=== PATIENT | male | born 1950 | race Caucasian/White ===

== ENCOUNTER 2016-04-19 16:30 | Inpatient (IN) | payer MEDICARE, OTHER ==
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
[~2016-04-19 16:30] MED LIST: ADVAIR250 INH; ALBUTEROL5 INH; ASAB PO; ATV1 PO; BP MEDICATION PO; COREG3 PO; COREG6 PO; COZ25 PO; DEMA20 PO; DULERA 200 MCG/13 GM INH; FERROUS SULF325 M1 PO; GLUCPH PO; HABIT14 TOP; KLONO5 PO; L40 PO; LEVEMIR SC; LIPITOR40 PO; NITROSTAT0.4 MG PO; NOVOLOG SC; PCET PO; PLAVIX PO; PRIN2.5 PO; PROVENTSOL INH; SENTAB PO; SPIRIVA INH; SPIRO25 PO; VITC500 PO; XARELTO20 MG PO; ZESTRIL40 MG PO
[2016-04-19 17:04] LABS: BE (BASE EXCESS) 0.6 MEQ/L (0 +/- 2.5); CARBOXYHEMOGLOBIN 1.7 % (0-3); HCO3 (ACTUAL BICARBONATE) 23.6 MEQ/L (23-27); HEMOBLOGIN CONTENT 14.1 G/DL (14-18); INSTRUMENT SERIAL # 8087; METHEMOGLOBIN 0.1 % (0-3); PCO2 (CO2 TENSION) 33 MMHG (35-45); PO2 (O2 TENSION) 83 MMHG (79-93); SAMPLE Arterial; pH 7.47 (7.37-7.43)
[2016-04-19 17:05] LABS: ALLENS TEST Pos
[2016-04-19 17:18] LABS: BASOPHILS 0.5 %; BASOPHILS ABSOLUTE 0.03 10/3/uL (0.0-0.16); EOSINOPHILS 1.6 %; EOSINOPHILS ABSOLUTE 0.09 10/3/uL (0.0-0.53); ER CBC TAT 0 Hrs 08 Mins; HEMOGLOBIN 13.1 g/dL (13.6-17.8); MEAN CORPUS HGB CONC 31.9 g/dL (32.0-36.0); MEAN CORPUSCULAR HEMOGLOB 27.1 pg (26.0-34.0); MEAN CORPUSCULAR VOLUME 85.1 fL (80-100); MEAN PLATELET VOLUME 11.2 fL (9.2-13.0); MONOCYTES 9.5 %; MONOCYTES ABSOLUTE 0.52 10/3/uL (0.21-1.20); NEUTROPHILS 68.4 %; NEUTROPHILS ABSOLUTE 3.75 10/3/uL (2.02-8.40); PLATELET COUNT 137 10/3/uL (150-400); RBC DISTRIBUTION WIDTH 14.3 % (12.0-16.0); RED CELL COUNT 4.83 10/6/uL (4.7-6.1); WHITE BLOOD CELLS 5.5 10/3/uL (4.5-10.5)
[2016-04-19 17:20] LABS: HEMATOCRIT 41.1 % (40.0-51.0); MANUAL DIFF NO %
[2016-04-19 17:24] LABS: INTERNATIONAL NORMAL RATI 1.3 UNITS (-); PARTIAL THROMBO TIME 26.5 SEC (22.5-37.2)
[2016-04-19 17:26] LABS: PROTIME (NOT ORD) 15.8 SEC (12.0-14.5)
[2016-04-19 17:31] LABS: ALBUMIN 3.5 G/DL (3.5-5.0); ALKALINE PHOSPHATASE 89 U/L (45-117); CALCIUM, SERUM 8.6 MG/DL (8.5-10.4); CHEST PAIN PROFILE TAT 0 Hrs 21 Mins; CHLORIDE, SERUM 108 MMOL/L (96-112); CO2 (CARBON DIOXIDE) 27 MMOL/L (24-34); CREATININE 0.79 MG/DL (0.70-1.30); GFR AFRICAN AMERICAN 109 ML/MIN (>=60); GFR NON AFRICAN AMERICAN 94 ML/MIN (>=60); SGOT(AST) 22 U/L (5-40); SGPT(ALT) 24 U/L (5-65); SODIUM, SERUM 143 MMOL/L (135-148); TOTAL PROTEIN 6.5 G/DL (6.0-8.5); TROPONIN I 0.03 NG/ML (<0.05)
[2016-04-19 17:32] LABS: ACETAMINOPHEN LEVEL (TYLENOL) < 2.0 MCG/ML (10.0-20.0); ALCOHOL < 10 MG/DL (0); BUN (BLOOD UREA NITROGEN) 14 MG/DL (6-23); DIRECT BILIRUBIN 0.2 MG/DL (0.0-0.4); GLUCOSE, SERUM 189 MG/DL (60-99); INDIRECT BILIRUBIN(NOT ORDER) 0.4 MG/DL (0.1-0.9); SALICYLATE < 1.7 MG/DL (-); TOTAL BILIRUBIN 0.6 MG/DL (0-1.2)
[2016-04-19 19:06] LABS: ASCORBIC ACID (UR NOT ORDER) NEG (NEG); BILIRUBIN, URINE NEGATIVE (NEG); ER URINALYSIS TAT 0 Hrs 15 Mins; KETONE, URINE TRACE MG/DL (NEG); LEUKOCYTE ESTERASE(NOT OR NEG (NEG); NITRITE (URINE) NEG (NEG); WBC (NOT ORDERED) (RFLEX) 2 (0-5)
[2016-04-19 19:29] LABS: AMPHETAMINES (NOT ORD) POS (NEG); BARBITURATES (NOT ORDERED NEG (NEG); BENZODIAZEPINES (NOT ORD) NEG (NEG); CANNABINOIDS (THC) NEG (NEG); COCAINE (NOT ORDERED) NEG (NEG); OPIATES NEG (NEG); PHENCYCLIDINE(PCP) NEG (NEG); TRICYCLICS NEG (NEG)
[2016-04-19] MEDS ORDERED: ALBUTEROL0.083 % INH (20:17)
[2016-04-19] MEDS ORDERED: HALF81 PO (20:18)
[2016-04-19] MEDS ORDERED: VITC500 PO (20:18)
[2016-04-19] MEDS ORDERED: COREG6 PO (20:18)
[2016-04-19] MEDS ORDERED: LIPITOR40 PO (20:18)
[2016-04-19] MEDS ORDERED: FERROUS SULF325 M1 PO (20:19)
[2016-04-19] MEDS ORDERED: KLONO5 PO (20:19)
[2016-04-19] MEDS ORDERED: IMOD PO (20:19)
[2016-04-19] MEDS ORDERED: ADVIL PO (20:20)
[2016-04-19] MEDS ORDERED: ADVAIR250 INH (20:20)
[2016-04-19] MEDS ORDERED: NOVOLOG SC (20:21)
[2016-04-19] MEDS ORDERED: LEVEMIR SC (20:21)
[2016-04-19] MEDS ORDERED: COZ25 PO (20:21)
[2016-04-19] MEDS ORDERED: SENTAB PO (20:22)
[2016-04-19] MEDS ORDERED: XARELTO20 MG PO (20:22)
[2016-04-19] MEDS ORDERED: NITROSTAT0.4 MG SL (20:22)
[2016-04-19] MEDS ORDERED: SPIRIVA INH (20:23)
[2016-04-19] MEDS ORDERED: SPIRO25 PO (20:23)
[2016-04-19] MEDS ORDERED: DEMA20 PO (20:23)
[2016-04-20 08:00] LABS: BASOPHILS 1.1 %; BASOPHILS ABSOLUTE 0.05 10/3/uL (0.0-0.16); EOSINOPHILS 2.5 %; EOSINOPHILS ABSOLUTE 0.12 10/3/uL (0.0-0.53); HEMATOCRIT 39.9 % (40.0-51.0); HEMOGLOBIN 12.7 g/dL (13.6-17.8); IMMATURE GRANULOCYTES 0.2 %; IMMATURE GRANULOCYTES ABSOLUTE 0.01 10/3/uL (0.0-0.11); LYMPHOCYTES 38.6 %; LYMPHOCYTES ABSOLUTE 1.82 10/3/uL (0.67-4.30); MEAN CORPUS HGB CONC 31.8 g/dL (32.0-36.0); MEAN CORPUSCULAR VOLUME 84.9 fL (80-100); MEAN PLATELET VOLUME 11.5 fL (9.2-13.0); MONOCYTES 10.4 %; MONOCYTES ABSOLUTE 0.49 10/3/uL (0.21-1.20); NEUTROPHILS 47.2 %; NEUTROPHILS ABSOLUTE 2.22 10/3/uL (2.02-8.40); PLATELET COUNT 130 10/3/uL (150-400); RBC DISTRIBUTION WIDTH 14.6 % (12.0-16.0); WHITE BLOOD CELLS 4.7 10/3/uL (4.5-10.5)
[2016-04-20 08:02] LABS: MANUAL DIFF NO %
[2016-04-20 08:19] LABS: BUN (BLOOD UREA NITROGEN) 14 MG/DL (6-23); CALCIUM, SERUM 8.8 MG/DL (8.5-10.4); CHLORIDE, SERUM 111 MMOL/L (96-112); CO2 (CARBON DIOXIDE) 26 MMOL/L (24-34); CREATININE 0.83 MG/DL (0.70-1.30); GFR AFRICAN AMERICAN 107 ML/MIN (>=60); GFR NON AFRICAN AMERICAN 92 ML/MIN (>=60); GLUCOSE, SERUM 169 MG/DL (60-99); SODIUM, SERUM 143 MMOL/L (135-148); TROPONIN I 0.03 NG/ML (<0.05)
[2016-04-21 06:34] LABS: CALCIUM, SERUM 9.2 MG/DL (8.5-10.4); CHLORIDE, SERUM 103 MMOL/L (96-112); CREATININE 0.91 MG/DL (0.70-1.30); GFR AFRICAN AMERICAN 102 ML/MIN (>=60); GFR NON AFRICAN AMERICAN 88 ML/MIN (>=60); POTASSIUM, SERUM 3.4 MMOL/L (3.5-5.3); SODIUM, SERUM 144 MMOL/L (135-148)
[2016-04-21 06:35] LABS: BUN (BLOOD UREA NITROGEN) 19 MG/DL (6-23); CO2 (CARBON DIOXIDE) 31 MMOL/L (24-34); GLUCOSE, SERUM 111 MG/DL (60-99)
== END 2016-04-21 18:59 | disposition home or self-care (01) | DRG 291 ==
LOC: ER 16:30 → CDU1 20:56 → CDU2 21:44
PROVIDERS: Emergency Medicine; Internal Medicine; Student in an Organized Health Care Education/Training Program
DX: I50.23 Acute on chronic systolic (congestive) heart failure (principal); G93.40 Encephalopathy, unspecified; J44.9 Chronic obstructive pulmonary disease, unspecified; I11.0 Hypertensive heart disease with heart failure; F60.9 Personality disorder, unspecified; I25.10 Atherosclerotic heart disease of native coronary artery without angina pectoris; E11.9 Type 2 diabetes mellitus without complications; F17.210 Nicotine dependence, cigarettes, uncomplicated; Z95.1 Presence of aortocoronary bypass graft; Z79.82 Long term (current) use of aspirin; Z79.4 Long term (current) use of insulin; Z91.19 Patient's noncompliance with other medical treatment and regimen; B19.20 Unspecified viral hepatitis C without hepatic coma; F15.90 Other stimulant use, unspecified, uncomplicated
CPT/HCPCS: 36600; 70450; 71010; 71020; 72125; 80048; 80076; 80305; 80307; 81001; 82140; 82805; 82962; 83735; 83880; 84484; 85025; 85610; 85730; 93005; 94640; 99285; A9270-GY